=== PATIENT | female | born 1990 | race Caucasian/White ===

== ENCOUNTER 2016-10-01 19:31 | Emergency (ER) | payer BC ==
[~2016-10-01] VITALS: Ht 167.6 cm; Wt 139.4 kg
[2016-10-01 20:05] VITALS: BP 141/104; TEMP 99; O2SAT 98
== END 2016-10-01 23:11 | disposition left against medical advice (07) ==
LOC: PHED 19:31
DX: K62.5 Hemorrhage of anus and rectum (principal)
CPT/HCPCS: 99281

== ENCOUNTER 2017-03-07 23:07 | Emergency (ER) | payer BC, MEDICAID ==
[~2017-03-07] VITALS: Ht 167.6 cm; Wt 125.0 kg
[2017-03-07 23:11] VITALS: BP 129/87; PULSE 120; RESP 18; TEMP 98.7; O2SAT 98
[2017-03-07] MEDS ORDERED: [UNRECOGNIZED DRUG - REMARK] (23:39)
[2017-03-07] MEDS ORDERED: [UNRECOGNIZED DRUG - REMARK] (23:39)
--- NOTE | 2017-03-07 23:43 | PD ---
HPI Chief Complaint: GI Complaint Time Seen by Provider: 23:25 Travel History International Travel<30 days: No Contact w/Intl Traveler<30days: No Traveled to known affect area: No History of Present Illness HPI 26-year-old female here for evaluation of rectal pain. Patient reports having pain for the last 2 weeks. Pain described as a pressure/burning sensation. She has been trying several [id number] hemorrhoidal creams without relief of symptoms. History of cholecystectomy, and since having her gallbladder removed 3 years ago, she has not had solid stools. No abdominal pain. She reports that her stools are mucus-like and appear to have some undigested food. She noticed some pinkish material on the toilet paper today. She denies inserting anything into her anus. She took a home test 2 days ago and states it was negative, and that there is no way she could be . PFSH Past Medical History ?: Not LMP: 2 years ago Social History Tobacco Use: Yes Allergies-Medications (Allergen,Severity, Reaction): Coded Allergies: Sodium Hypochlorite (Verified Allergy, Intermediate, Swelling, 03/07/17) Milk (Verified Allergy, Unknown, Nausea/Vomiting, 03/07/17) Pecan (Verified Allergy, Unknown, Swelling, 03/07/17) Tongue Reported Meds & Prescriptions Reported Meds & Active Scripts Active Percocet (Oxycodone-Acetaminophen) 5-325 mg Tab 1 Tab PO Q6H PRN Anusol-Hc Supp (Hydrocortisone Supp) 25 Mg Supp 25 Mg RECTAL BID Reported [OTC "pain reliever"] [OTC "hemorrhoid" med] Review of Systems Except as stated in HPI: all other systems reviewed are Neg Physical Exam Narrative GENERAL: Well-developed, well-nourished, overweight, no apparent distress. SKIN: Focused skin assessment warm/dry. No rash. GASTROINTESTINAL: Abdomen soft, non-tender, nondistended. RECTUM: Exam performed in the presence of a female nurse. Anus is slightly pink/erythematous. There are no masses, no fissures, no hemorrhoids. Heme- negative brown stool. Moderate rectal tenderness without fluctuance or induration. MUSCULOSKELETAL: No obvious deformities. No clubbing. No cyanosis. No edema. NEUROLOGICAL: Awake and alert. No obvious cranial nerve deficits. Motor grossly within normal limits. Normal speech. PSYCHIATRIC: Appropriate mood and affect; insight and judgment normal. Data Data Last Documented VS Vital Signs Date Time Temp Pulse Resp B/P Pulse Ox O2 Delivery O2 Flow Rate FiO2 03/08/17 00:16 93 03/07/17 23:20 03/07/17 23:11 98.7 18 98 Orders Hydrocortisone Supp (Hemorrhoidal Hc Sup (03/07/17 23:45) Ketorolac Inj (Toradol Inj) (03/07/17 23:45) Oxycodone-Acetamin 5-325 Mg (Percocet (03/07/17 23:45) Mandatory Outpatient Referral (03/07/17 23:53) [facility] Medical Decision Making Medical Screen Exam Complete: Yes Emergency Medical Condition: Yes Differential Diagnosis Rectal pain/irritation, hemorrhoid, fissure, perianal abscess unlikely Narrative Course Initial vital signs show heart rate 120, blood pressure 129/87, pulse ox 98% on room air, oral temp of 98.7F. Heart rate improved to 93 without any intervention. This is a 26-year-old female who is here for evaluation of rectal pain for 2 weeks. On physical exam the rectum appears to be somewhat irritated/pink. There are no fissures, masses, or hemorrhoids. There is no fluctuance or induration. Her stool is heme negative and brown. Plan is to give the patient an IM shot of Toradol, oral Percocet, and a dose of Anusol here in the emergency department. There are no signs of perianal abscess on exam. Patient is stable for discharge home with outpatient follow-up with a file conversion operator this week. She was informed on when to return to the emergency department. She verbalizes understanding and agreement with plan. Diagnosis Primary Impression: Rectal pain Referrals: Tammy Jane MD 3 days Repair Operator [facility] 3 days Additional Instructions: Follow-up with a primary care physician this week. Follow-up with file conversion operator Dr. Jane or a file conversion operator of your choice this week. Return to the emergency department for worsening symptoms or any other concerns. Scripts Oxycodone-Acetaminophen (Percocet)5-325 mg Tab1 Tab PO Q6H PRN (PAIN) #15 TAB Ref 0 Prov:Clemente Solis MD 03/07/17 Hydrocortisone Supp (Anusol-Hc Supp)25 Mg Supp25 Mg RECTAL BID #24 SUPP Prov:Clemente Solis MD 03/07/17 Disposition: 01 DISCHARGE HOME Condition: Stable Clemente Solis MD Mar 07, 2017 23:43
[2017-03-07] MEDS ORDERED: KETOROLAC TROMETHAMINE 60 MG/2 ML (IM) VIAL IM ONE (23:45)
[2017-03-07] MEDS ORDERED: oxyCODONE/ACETAMINOPHEN 5 MG/325 MG TAB PO ONE (23:45)
[2017-03-07] MEDS ORDERED: HYDROCORTISONE ACETATE 25 MG SUPP RECTAL ONE (23:45)
[2017-03-07] MEDS ORDERED: ANUS25SU RECTAL (23:53)
[2017-03-07] MEDS ORDERED: PERC5TAB12 PO (23:53)
[2017-03-08 00:16] VITALS: PULSE 93
== END 2017-03-08 00:36 | disposition home or self-care (01) ==
LOC: PHED 23:07
DX: K62.89 Other specified diseases of anus and rectum (principal)
CPT/HCPCS: 96372; 99284; J1885

== ENCOUNTER 2017-11-05 12:29 | Emergency (ER) | payer BC, MEDICAID ==
[~2017-11-05] VITALS: Ht 167.6 cm; Wt 118.0 kg
[~2017-11-05 12:29] MED LIST: ANUS25SU RECTAL; PERC5TAB12 PO; [UNRECOGNIZED DRUG - REMARK]; [UNRECOGNIZED DRUG - REMARK]
[2017-11-05 12:52] VITALS: BP 132/66; PULSE 105; RESP 18; TEMP 99.4; O2SAT 98
--- NOTE | 2017-11-05 13:01 | PD ---
HPI Chief Complaint: Cold / Flu Symptoms Time Seen by Provider: 12:57 Travel History International Travel<30 days: No Contact w/Intl Traveler<30days: No Traveled to known affect area: No History of Present Illness HPI 27-year-old female presents to the emergency department with complaint of cough 3 days, with onset of fever yesterday, generalized weakness, and body aches. T -max 101.4 this morning. Reports feeling short of breath and wheezing. Says she gets "bronchitis "a lot. Has a nebulizer at home and last used it yesterday with good relief of symptoms. Reports tobacco use. Reports left ear pain. Denies chest pain, abdominal pain, vomiting, change in urine or stool. Symptoms are mild to moderate in severity. Has taken Tylenol, Midol, and cold medicine for symptom management. Has been is sick with similar symptoms, but states he is without fever. Patient saw her dentist yesterday and was given a prescription for amoxicillin for a dental abscess; she has not filled the prescription and has not started taking it, but plans to do so today. The nurse verbalized concern that the patient is a self cutter, and the patient denies suicidal or homicidal ideations. I question the patient in regards to these concerns. Patient says she last self cut 3 months ago. She denies suicidal or homicidal ideations. She has history of depression, anxiety, bipolar disorder, borderline personality disorder. She does not currently take any medications. She is to see psychiatry in [place], but currently does not have a psychiatrist. No primary care provider. History of diabetes mellitus type 2 and is currently diet-controlled. Allergies to milk, Pecan nut, sodium hypochlorite solution. Has no other medical complaints. No other modifying factors or associated signs and symptoms. PFSH Past Medical History Bipolar Disorder: Yes Anxiety: Yes Depression: Yes Diminished Hearing: No Hypertension: Yes Psychiatric: Yes (Bipolar; Borderline Personality Disorder) Thyroid Disease: Yes ?: Unknown LMP: 09/22/17 Past Surgical History Cholecystectomy: Yes Other Surgery: Yes (wisdom teeth) Social History Alcohol Use: No Tobacco Use: Yes Substance Use: Yes (OCC. THC) Allergies-Medications (Allergen,Severity, Reaction): Coded Allergies: sodium hypochlorite solution (Verified Allergy, Intermediate, Swelling, ) milk (Verified Allergy, Unknown, Nausea/Vomiting, 11/05/17) pecan nut (Verified Allergy, Unknown, Swelling, 11/05/17) Tongue Reported Meds & Prescriptions Reported Meds & Active Scripts Active Tamiflu (Oseltamivir Phosphate) 75 Mg Cap 75 Mg PO BID 5 Days Ibuprofen 800 Mg Tab 800 Mg PO Q6HR PRN Ventolin Hfa 18 GM Inh (Albuterol Sulfate) 90 Mcg/Act Aer 2 Puff INH Q4-6H PRN Deltasone (Prednisone) 20 Mg Tab 40 Mg PO DAILY 4 Days start 11/06/2017 Review of Systems Except as stated in HPI: all other systems reviewed are Neg Physical Exam Narrative GENERAL: Well-nourished, well-developed female patient, in no acute distress; afebrile, nontoxic-appearing SKIN: Warm and moist. HEAD: Atraumatic. Normocephalic. EYES: Pupils equal and round. No scleral icterus. No injection or drainage. ENT: Mucosa pink and moist. No erythema or exudates. No uvular edema. No uvular , palatal, or tonsillar deviation. Airway patent. EARS: Bilateral pinnae and external canals appear within normal limits. Bilateral tympanic membranes without erythema, dullness or perforation. NECK: Trachea midline. No lymphadenopathy. CARDIOVASCULAR: Regular rate and rhythm. No murmur appreciated. RESPIRATORY: No accessory muscle use. Lungs sounds with mild wheezing in bilateral bases on auscultation. Breath sounds equal bilaterally. No audible wheezing. No retractions or tachypnea. GASTROINTESTINAL: Obese. MUSCULOSKELETAL: No obvious deformities. No clubbing. No cyanosis. No edema. NEUROLOGICAL: Awake and alert. Oriented 3. No obvious cranial nerve deficits. Motor grossly within normal limits. Normal speech. Moves all extremities. 5/5 strength to all extremities. PSYCHIATRIC: Appropriate mood and affect; insight and judgment normal. Data Data Last Documented VS Vital Signs Date Time Temp Pulse Resp B/P (MAP) Pulse Ox O2 Delivery O2 Flow Rate FiO2 11/05/17 12:52 99.4 105 18 132/66 (88) 98 Orders Orders Influenzae A/B Antigen (11/05/17 13:01) Chest, Single Ap (11/05/17 13:14) Prednisone (Deltasone) (11/05/17 13:15) Albuterol-Ipratropium Neb (Duoneb Neb) (11/05/17 13:15) [facility] Medical Decision Making Medical Screen Exam Complete: Yes Emergency Medical Condition: Yes Medical Record Reviewed: Yes Differential Diagnosis Influenza, bronchitis, viral illness, upper respiratory infection, pneumonia Narrative Course 27-year-old female with cold/flu symptoms. Patient has low-grade temperature of 99.4 in the ER. Lungs with mild wheezing in bilateral bases. Patient is in no acute distress and without retractions or tachypnea. The nurse verbalized concern that the patient admits to self cutting. I did question the patient about self cutting and she last cut 3 months ago. She denies suicidal or homicidal ideations. I did offer for the patient to see psychiatry and she declined. I feel that the patient is not a threat to herself or others and does not meet Wahl act criteria. I discussed community resources and discussed reasons to return to the emergency department. Patient verbalized understanding and agreement. Influenza, chest x-ray, albuterol nebulizer, Deltasone ordered. 1347: Influenza A+. On reexamination the patient reports improvement in symptoms. She denies chest tightness or shortness of breath. Lungs are clear and equal throughout on auscultation. 1416: Chest x-ray with no acute findings. X-ray findings discussed with the patient. Instructed patient to fill amoxicillin and take medication as prescribed by her dentist. Deltasone, Ventolin inhaler, ibuprofen, Tamiflu prescribed for home. Discussed viral illness and symptom management. Instructed patient to follow up with primary care provider. Patient verbalizes understanding and agreement with treatment plan. Patient is medically cleared and stable for discharge. Discussed reasons to return to the emergency department. Patient agrees with treatment plan. The patients vital signs are stable and the patient is stable for outpatient follow-up and treatment. Patient discharged home, stable and in no acute distress. Diagnosis Primary Impression: Influenza A Additional Impression: Acute bronchitis Qualified Codes: J20.9 - Acute bronchitis, unspecified Referrals: [facility] (Out patient) Primary Care Physician Psychiatrist Tiff[facility] Patient Instructions: Acute Bronchitis (ED), General Instructions, Influenza ( ED), Safe Use of Cough and Cold Medicines (ED) Departure Forms: Tests/Procedures, Work Release Special Instructions: No work until fever free greater than 24 hours; temperature less than 100.4 is considered fever free Additional Instructions: Use Albuterol inhaler as prescribed Take oral steroids as prescribed and complete full course Ibuprofen or Tylenol as directed and as needed to reduce fever; may alternate ibuprofen and Tylenol as needed every 3 hours to minimize fever [id number] cold/flu medications as directed and as needed for symptom management Get plenty of sleep/rest Drink plenty of fluids to prevent dehydration; such as Gatorade, Powerade, Pedialyte [place] diet to encourage nutrition such as crackers, fruit, applesauce, toast, soup etc. Use an air humidifier/turn off ceiling fans Drink plenty of fluids to prevent dehydration Turn off ceiling fans and sleep with head of bed elevated Avoid triggers such as second hand smoke, dust, known allergens Contract safety to self and others Return to the emergency department or call for help if thoughts of wanting to hurt yourself or others arises Follow-up with Charli Barajas/SANDRA for outpatient assistance for psychiatry Follow-up with your primary care provider Return to the emergency department immediately with worsening of symptoms Med/Other Pt SpecificInfo: Prescription(s) given Scripts Oseltamivir (Tamiflu) 75 Mg Cap 75 MG PO BID for Mgmt Viral Infection for 5 Days, #10 CAP 0 Refills Prov: Ivone Carr 11/05/17 Ibuprofen (Ibuprofen) 800 Mg Tab 800 MG PO Q6HR Y for PAIN, #30 TAB 0 Refills Prov: Ivone Carr 11/05/17 Albuterol 18 GM Inh (Ventolin Hfa 18 GM Inh) 90 Mcg/Act Aer 2 PUFF INH Q4-6H Y for SOB/WHEEZING, #1 INHALER 0 Refills Prov: Ivone Carr 11/05/17 Prednisone (Deltasone) 20 Mg Tab 40 MG PO DAILY for 4 Days, #8 TAB 0 Refills start 11/06/2017 Prov: Ivone Carr 11/05/17 Disposition: 01 DISCHARGE HOME Condition: Stable Ivone Carr Nov 05, 2017 13:01
[2017-11-05] MEDS ORDERED: predniSONE 20 MG TAB PO ONE (13:15)
[2017-11-05] MEDS ORDERED: RESP: ALBUTEROL 2.5 MG/IPRATROPIUM 0.5 MG NEB (SCH) INH ONE (13:15)
[2017-11-05] MEDS ORDERED: IBUP1TAB7 PO (13:49)
[2017-11-05] MEDS ORDERED: OSEL75 PO (13:49)
[2017-11-05] MEDS ORDERED: PRED-503 PO (13:49)
[2017-11-05] MEDS ORDERED: VENTAER INH (13:49)
--- NOTE | 2017-11-05 14:15 | RADRPT ---
EXAM DATE/TIME: 11/05/2017 13:19 [place] COMPARISON: No previous studies available for comparison. INDICATIONS : Cough and fever. MEDICAL HISTORY : None. SURGICAL HISTORY : None. ENCOUNTER: Initial ACUITY: 3 days PAIN SCORE: 5/10 LOCATION: Bilateral chest FINDINGS: A single view of the chest demonstrates the lungs to be symmetrically aerated without evidence of mas s, infiltrate or effusion. The cardiomediastinal contours are unremarkable. Osseous structures are intact. CONCLUSION: No acute disease. Sha Dubose MD on November 05, 2017 at 14:12 Board Certified Radiologist. This report was verified electronically.
== END 2017-11-05 14:31 | disposition home or self-care (01) ==
LOC: PHEFT 12:29
DX: J09.X2 Influenza due to identified novel influenza A virus with other respiratory manifestations (principal); J20.9 Acute bronchitis, unspecified; R50.9 Fever, unspecified; R53.1 Weakness; M79.1 Myalgia; H92.02 Otalgia, left ear; I10 Essential (primary) hypertension; E11.9 Type 2 diabetes mellitus without complications; E07.9 Disorder of thyroid, unspecified; Z72.0 Tobacco use; Z86.59 Personal history of other mental and behavioral disorders
CPT/HCPCS: 71045; 87804; 94664; 99284; J7512